=== PATIENT | male | born 1975 | race Hispanic/Latino ===

== ENCOUNTER 2021-05-17 08:25 | Emergency (ER) | payer SELFPAY ==
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
[2021-05-17 08:36] VITALS: BP 157/100; PULSE 82; RESP 16; TEMP 36.9; O2SAT 98
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
== END 2021-05-17 09:21 | disposition home or self-care (01) ==
PROVIDERS: Emergency Provider Nurse Practitioner Family
DX: S40.012A Contusion of left shoulder, initial encounter (principal); V48.5XXA Car driver injured in noncollision transport accident in traffic accident, initial encounter; I10 Essential (primary) hypertension
CPT/HCPCS: 71046; 71100; 99203; A4565; G0463